=== PATIENT | female | born 1955 | race Caucasian/White ===

== ENCOUNTER 2016-08-16 11:54 | Emergency (ER) | payer OTHER ==
[~2016-08-16 11:54] MED LIST: ACTONEL150 MG PO; ALIGN; AMB10 PO; AMIT50 PO; AMITIZA8 MCG PO; ASAB PO; CELEBREX2 PO; COLCH6 PO; COLCRYS0.6 MG PO; COLON HEALTH PO; DIL2TAB PO; DIL4TAB PO; DONNATA1 OR; DONNATAL PO; DONNATAL TAB1 TAB OR; EFFEX75 PO; ESTRATEST PO; FESO4 PO; FOLIC PO; FOSAMAX70 MG PO; HYOMAX-SL0.125 MG PO; KAPIDEX60 MG PO; LEVOTHYROXIN50 MCG PO; LEVSINTAB PO; MAXALT10 MG PO; MIRALAXPKT PO; MULTIPLE VIT PO; NAP500 PO; PHEN50TAB PO; PR25 PO; PREV30 PO; PRILO PO; PRIN20 PO; PROBIOTIC PO; RESTASIS OPH; SANCTURA XR60 MG PO; SENTAB PO; SEROQUEL200 MG PO; SEROQUEL300 MG PO; SYMAX-SR0.375 MG PO; TOPAMAX100 PO; TOPAMAX200 MG PO; VICODINTAB PO; VITAMIN D1000 UNI1 PO; ZESTORETIC1 TAB PO; ZOFRAN ODT4 MG PO; [UNRECOGNIZED DRUG - CODE] PO
== END 2016-08-16 12:25 | disposition home or self-care (01) ==
LOC: ER 11:54
DX: S42.201A Unspecified fracture of upper end of right humerus, initial encounter for closed fracture (principal); I10 Essential (primary) hypertension; Z87.442 Personal history of urinary calculi; Z79.899 Other long term (current) drug therapy; W19.XXXA Unspecified fall, initial encounter
CPT/HCPCS: 73030-RT; 96374; 99283; J1170